=== PATIENT | female | born 1980 | race Caucasian/White ===

== ENCOUNTER 2017-04-12 18:51 | Emergency (ER) | payer MEDICARE, MEDICAID ==
[~2017-04-12] VITALS: Ht 160 cm; Wt 54.5 kg
[2017-04-12] MEDS ORDERED: HYDR-3713 PO (19:13)
[2017-04-12] MEDS ORDERED: METH10TA2 PO (19:13)
[2017-04-12] MEDS ORDERED: PRIS50TA PO (19:13)
[2017-04-12] MEDS ORDERED: CALC0.009 TOP (19:13)
[2017-04-12] MEDS ORDERED: BACL1TAB9 PO (19:13)
[2017-04-12] MEDS ORDERED: TORS20TA2 PO (19:13)
[2017-04-12] MEDS ORDERED: [UNRECOGNIZED DRUG - OTHER] PO (19:13)
[2017-04-12] MEDS ORDERED: NAPR500T3 PO (19:13)
[2017-04-12] MEDS ORDERED: COLA100C5 PO (19:13)
[2017-04-12] MEDS ORDERED: IBUP-1022 PO (19:13)
[2017-04-12] MEDS ORDERED: GABA800T PO (19:13)
[2017-04-12] MEDS ORDERED: methylPREDNISolone INJ 125 MG/2 ML VIAL (J2930) IM ONE ×2 (21:15→22:00)
[2017-04-12] MEDS ORDERED: dexameTHASONE 20 MG/5 ML VIAL (J1100) IV ONE (21:45)
[2017-04-12 22:46] VITALS: BP 105/61
--- NOTE | 2017-04-13 11:30 | REP ---
Chest x-ray: Two views. History: Cough. Comparison study: March 15, 2017. Findings: Mkyfze-S-Skrm catheter is seen in place on the right with its tip in the expected location of the superior vena cava. The lungs are symmetrically aerated and clear. Heart is not enlarged. Pulmonary vasculature is not increased. Pleural angles are sharp. No significant bony abnormality is seen. Impression: No active disease. Signed by Andreas Aguilar MD 04/13/2017 09:39 A
== END 2017-04-12 22:48 | disposition home or self-care (01) ==
LOC: M ED 18:51
DX: G35 Multiple sclerosis (principal); F41.9 Anxiety disorder, unspecified; F32.9 Major depressive disorder, single episode, unspecified; Z87.891 Personal history of nicotine dependence; Z79.899 Other long term (current) drug therapy
CPT/HCPCS: 71020; 96374; 99282; J2930

== ENCOUNTER → 2017-07-08 | Outpatient (REF) | payer MEDICARE, MEDICAID ==
[2017-07-08 13:34] LABS: HEMATOCRIT 39.9 % (36.0-47.0); HEMOGLOBIN 13.4 g/dl (12.0-16.0); MEAN CORPUSCULAR HEMOGLOBIN 31.8 pg (27.0-33.0); MEAN CORPUSCULAR HGB CONC 33.6 g/dl (32.0-36.5); MEAN CORPUSCULAR VOLUME 94.8 fl (80.0-96.0); PLATELET COUNT, AUTOMATED 413 10^3/uL (150-450); RED BLOOD COUNT 4.21 10^6/uL (4.00-5.40); WHITE BLOOD COUNT 8.7 10^3/uL (4.0-10.0)
[2017-07-08 13:56] LABS: TOTAL 25(OH) VITAMIN D 37.7 NG/ML (30.0-100.0)
[2017-07-08 14:09] LABS: ALBUMIN 4.3 GM/DL (3.2-5.2); ALBUMIN/GLOBULIN RATIO 1.23 (1.00-1.93); ALKALINE PHOSPHATASE 71 U/L (45-117); ALT/SGPT 14 U/L (12-78); ANION GAP 7 MEQ/L (8-16); AST/SGOT 14 U/L (7-37); BILIRUBIN,TOTAL 0.6 MG/DL (0.2-1.0); BLOOD UREA NITROGEN 21 MG/DL (7-18); CARBON DIOXIDE LEVEL 31 MEQ/L (21-32); CHLORIDE LEVEL 100 MEQ/L (98-107); GLOMERULAR FILTRATION RATE > 60.0 (>60); GLUCOSE, FASTING 66 MG/DL (70-105); POTASSIUM SERUM 3.6 MEQ/L (3.5-5.1); SODIUM LEVEL 138 MEQ/L (136-145); TOTAL PROTEIN 7.8 GM/DL (6.4-8.2)
== END ==
LOC: SKLABADC 10:22
DX: G35 Multiple sclerosis (principal); M62.81 Muscle weakness (generalized); H53.8 Other visual disturbances
CPT/HCPCS: 84443

== ENCOUNTER 2017-07-16 10:36 | Inpatient (IN) | payer MEDICARE, MEDICAID ==
[2017-07-16 11:35] LABS: ABG BASE EXCESS -1.3 (-2.0-2.0); ABG HCO3 22.2 MEQ/L (22.0-26.0); ABG PARTIAL PRESSURE CO2 33.7 mmHg (35.0-45.0); ABG PARTIAL PRESSURE O2 84.1 mmHg (75.0-100.0); ABG STANDARD HCO3 23.3 MEQ/L (22.0-26.0); ABG TOTAL CO2 23.3 MEQ/L (22.0-29.0); ABG pH (ARTERIAL) 7.437 UNITS (7.350-7.450)
[2017-07-16 11:47] LABS: BEDSIDE GLUCOSE 111 MG/DL (70-105)
[2017-07-16] MEDS: NS 1,000 ML IV (11:47)
[2017-07-16 11:57] LABS: BASO % 0.2 % (0.0-1.0); EOS # 0.3 10^3/uL (0.0-0.50); EOS % 3.6 % (0.0-3.0); HEMATOCRIT 35.6 % (36.0-47.0); HEMOGLOBIN 12.2 g/dl (12.0-16.0); IMMATURE GRANULOCYTE % 0.4 % (0-0); LYMPH # 0.4 10^3/uL (1.5-4.5); MEAN CORPUSCULAR HEMOGLOBIN 32.2 pg (27.0-33.0); MEAN CORPUSCULAR HGB CONC 34.3 g/dl (32.0-36.5); MEAN CORPUSCULAR VOLUME 93.9 fl (80.0-96.0); MONO # 0.5 10^3/uL (0.0-0.8); MONO % 5.7 % (0.0-5.0); NEUTROPHILS # 7.7 10^3/uL (1.8-7.7); NEUTROPHILS % 86.1 % (36.0-66.0); PLATELET COUNT, AUTOMATED 292 10^3/uL (150-450); RED BLOOD COUNT 3.79 10^6/uL (4.00-5.40); RED CELL DISTRIBUTION WIDTH 12.9 % (11.5-14.5)
[2017-07-16 12:03] LABS: AMMONIA 20 uMOL/L (<32)
[2017-07-16 12:07] LABS: LACTIC ACID SEPSIS PROTOCOL 2.1 MMOL/L (0.4-2.0)
[2017-07-16 12:16] LABS: ALBUMIN/GLOBULIN RATIO 1.21 (1.00-1.93); ALKALINE PHOSPHATASE 88 U/L (45-117); ALT/SGPT 43 U/L (12-78); ANION GAP 8 MEQ/L (8-16); AST/SGOT 52 U/L (7-37); BILIRUBIN,DIRECT 0.2 MG/DL (0.0-0.2); BILIRUBIN,TOTAL 0.7 MG/DL (0.2-1.0); BLOOD UREA NITROGEN 13 MG/DL (7-18); CALCIUM LEVEL 8.8 MG/DL (8.5-10.1); CARBON DIOXIDE LEVEL 26 MEQ/L (21-32); CHLORIDE LEVEL 103 MEQ/L (98-107); CPK CREATINE PHOSPHOKINASE 445 U/L (26-192); CREATININE FOR GFR 0.88 MG/DL (0.55-1.02); ETHYL ALCOHOL (ETHANOL) < 0.003 % (0.000-0.010); GLOMERULAR FILTRATION RATE > 60.0 (>60); GLUCOSE, FASTING 100 MG/DL (70-105); POTASSIUM SERUM 3.4 MEQ/L (3.5-5.1); SALICYLATE LEVEL < 1.7 MG/DL (5.0-30.0); SODIUM LEVEL 137 MEQ/L (136-145); TOTAL PROTEIN 7.3 GM/DL (6.4-8.2); TROPONIN I < 0.02 NG/ML (< 0.10)
[2017-07-16 12:22] LABS: ACETAMINOPHEN LEVEL < 2.0 UG/ML (10.0-30.0); CK-MB VALUE MASS 1.1 NG/ML (0.0-3.6); MB/CK RELATIVE INDEX 0.24 (< OR =4); THYROID STIMULATING HORMONE 0.612 uIU/ML (0.358-3.740)
[2017-07-16 12:44] LABS: OSMOLALITY SERUM 283 MOSM/KG (275-295)
[2017-07-16 12:50] LABS: KETONE, URINE AUTO RFX NEGATIVE (NEGATIVE); LEUKOCYTE ESTERASE UR AUTO RFX TRACE (NEGATIVE); MUCUS, URINE RFX SMALL (NEGATIVE); NITRITE, URINE AUTO RFX NEGATIVE (NEGATIVE); RBC, URINE AUTO RFX 1 /HPF (0-3); SPECIFIC GRAVITY UR AUTO RFX 1.009 (1.002-1.035); SQUAM EPITHELIAL CELL UR AURFX 1 /HPF (0-6); WBC, URINE AUTO RFX 3 /HPF (0-3)
[2017-07-16] MEDS: CEFEPIME HCL 2 GM in APPROPRIATE DILUENT 1 EA IV (12:52)
[2017-07-16 13:09] LABS: AMPHETAMINES LEVEL URINE NEGATIVE (NEGATIVE); BARBITURATES URINE NEGATIVE (NEGATIVE); BENZODIAZEPINES URINE NEGATIVE (NEGATIVE); CANNABINOIDS URINE POSITIVE (NEGATIVE); COCAINE METABOLITE URINE NEGATIVE (NEGATIVE); METHADONE URINE POSITIVE (NEGATIVE); OPIATES URINE NEGATIVE (NEGATIVE); PHENCYCLIDINE URINE NEGATIVE (NEGATIVE)
[2017-07-16 13:44] LABS: NT-PRO BNP 49 PG/ML (<125)
[2017-07-16] MEDS: NS 500 ML IV (13:50)
[2017-07-16] MEDS: NALOXONE INJ 0.4 MG/1 ML VIAL (J2310) IV (14:22)
[2017-07-16 14:23] LABS: MAGNESIUM LEVEL 1.8 MG/DL (1.8-2.4)
[2017-07-16] MEDS: KCL 10MEQ IN 100ML SWI (KRUN) 10 MEQ in APPROPRIATE DILUENT 1 EA IV (14:57)
[2017-07-16] MEDS: METHADONE 10 MG TAB (S0109) PO ×2 (16:00→22:29)
[2017-07-16] MEDS: MULTIVITAMIN -ADULT INJECTION 10 ML, THIAMINE INJection 100 MG, FOLIC ACID 1 MG in NS 1... IV (16:21)
[2017-07-16] MEDS: GABAPENTIN 300 MG CAP PO ×2 (17:00→22:29)
[2017-07-16] MEDS: BETHANECHOL 10 MG TAB PO ×2 (17:00→22:10)
[2017-07-16] MEDS: LORazepam 2 MG/ML VIAL (J2060) IV (17:01)
[2017-07-16] MEDS: BACLOFEN 10 MG TAB PO ×2 (17:16→22:29)
[2017-07-16] MEDS ORDERED: PROHANCE 279.3MG/ML 5ML VIAL (A9576) As Ordered (18:11)
[2017-07-16] MEDS ORDERED: methylPREDNISolone INJ 125 MG/2 ML VIAL (J2930) IV (20:15)
[2017-07-16 21:14] LABS: CPK CREATINE PHOSPHOKINASE 379 U/L (26-192); TROPONIN I < 0.02 NG/ML (< 0.10)
[2017-07-16 21:15] LABS: CK-MB VALUE MASS 1.5 NG/ML (0.0-3.6); MB/CK RELATIVE INDEX 0.39 (< OR =4)
[2017-07-16] MEDS: SYMBICORT 160/4.5MCG INHALER 6GM INH (21:51)
[2017-07-16] MEDS: HEPARIN SOD (PORCINE) 5000 UNITS/ML VIAL SQ (22:05)
[2017-07-16] MEDS: CEFTRIAXONE SOD 2 GM in APPROPRIATE DILUENT 1 EA IV (22:06)
[2017-07-16] MEDS: methylPREDNISolone 1,000 MG, VIAL MATE ADAPTER 1 EACH in D5W 250 ML IV (22:06)
[2017-07-16] MEDS: clonazePAM 0.5 MG TAB PO (22:29)
[2017-07-16] MEDS: KCL 20MEQ IN D5/0.45NS 1000ML 1,000 ML IV (23:54)
[2017-07-17] MEDS: KCL 20MEQ IN D5/0.45NS 1000ML 1,000 ML IV ×4 (03:28→19:54)
[2017-07-17 07:15] LABS: HEMATOCRIT 30.1 % (36.0-47.0); HEMOGLOBIN 10.3 g/dl (12.0-16.0); MEAN CORPUSCULAR HEMOGLOBIN 32.1 pg (27.0-33.0); MEAN CORPUSCULAR HGB CONC 34.2 g/dl (32.0-36.5); MEAN CORPUSCULAR VOLUME 93.8 fl (80.0-96.0); PLATELET COUNT, AUTOMATED 284 10^3/uL (150-450); RED BLOOD COUNT 3.21 10^6/uL (4.00-5.40); RED CELL DISTRIBUTION WIDTH 12.8 % (11.5-14.5); WHITE BLOOD COUNT 5.4 10^3/uL (4.0-10.0)
[2017-07-17 07:43] LABS: ANION GAP 10 MEQ/L (8-16); BLOOD UREA NITROGEN 11 MG/DL (7-18); CALCIUM LEVEL 8.1 MG/DL (8.5-10.1); CARBON DIOXIDE LEVEL 22 MEQ/L (21-32); CHLORIDE LEVEL 108 MEQ/L (98-107); CREATININE FOR GFR 0.97 MG/DL (0.55-1.02); GLOMERULAR FILTRATION RATE > 60.0 (>60); GLUCOSE, FASTING 180 MG/DL (70-105); MAGNESIUM LEVEL 1.8 MG/DL (1.8-2.4); POTASSIUM SERUM 3.3 MEQ/L (3.5-5.1); SODIUM LEVEL 140 MEQ/L (136-145)
[2017-07-17] MEDS: SYMBICORT 160/4.5MCG INHALER 6GM INH ×2 (07:44→21:31)
[2017-07-17] MEDS: POTASSIUM CHLORIDE 10 MEQ SR TABLET PO (09:00)
[2017-07-17] MEDS: BACLOFEN 10 MG TAB PO ×4 (09:30→23:19)
[2017-07-17] MEDS: HEPARIN SOD (PORCINE) 5000 UNITS/ML VIAL SQ ×2 (09:31→23:09)
[2017-07-17] MEDS: METHADONE 10 MG TAB (S0109) PO ×3 (09:31→23:08)
[2017-07-17] MEDS: clonazePAM 0.5 MG TAB PO ×2 (09:32→23:08)
[2017-07-17] MEDS: GABAPENTIN 300 MG CAP PO ×4 (09:32→23:07)
[2017-07-17] MEDS: BETHANECHOL 10 MG TAB PO ×4 (09:40→23:09)
[2017-07-17] MEDS: DESVENLAFAXINE ER 50 MG TABLET (PRISTIQ) PO (09:41)
[2017-07-17 15:39] LABS: HCG, SERUM QUANTITATIVE < 1.0 MIU/ML
[2017-07-17] MEDS: methylPREDNISolone 1,000 MG, VIAL MATE ADAPTER 1 EACH in D5W 250 ML IV (23:08)
[2017-07-18] MEDS: CEFTRIAXONE SOD 2 GM in APPROPRIATE DILUENT 1 EA IV ×2 (00:17→22:07)
[2017-07-18 06:00] LABS: HEMATOCRIT 28.2 % (36.0-47.0); HEMOGLOBIN 9.7 g/dl (12.0-16.0); MEAN CORPUSCULAR HEMOGLOBIN 32.6 pg (27.0-33.0); MEAN CORPUSCULAR HGB CONC 34.4 g/dl (32.0-36.5); MEAN CORPUSCULAR VOLUME 94.6 fl (80.0-96.0); PLATELET COUNT, AUTOMATED 313 10^3/uL (150-450); RED BLOOD COUNT 2.98 10^6/uL (4.00-5.40); RED CELL DISTRIBUTION WIDTH 13.1 % (11.5-14.5); WHITE BLOOD COUNT 12.7 10^3/uL (4.0-10.0)
[2017-07-18 06:15] LABS: ANION GAP 9 MEQ/L (8-16); BLOOD UREA NITROGEN 10 MG/DL (7-18); CALCIUM LEVEL 8.4 MG/DL (8.5-10.1); CARBON DIOXIDE LEVEL 20 MEQ/L (21-32); CHLORIDE LEVEL 109 MEQ/L (98-107); CREATININE FOR GFR 0.81 MG/DL (0.55-1.02); GLOMERULAR FILTRATION RATE > 60.0 (>60); GLUCOSE, FASTING 156 MG/DL (70-105); MAGNESIUM LEVEL 1.8 MG/DL (1.8-2.4); POTASSIUM SERUM 4.2 MEQ/L (3.5-5.1); SODIUM LEVEL 138 MEQ/L (136-145)
[2017-07-18] MEDS: SYMBICORT 160/4.5MCG INHALER 6GM INH ×2 (08:49→20:41)
[2017-07-18] MEDS: clonazePAM 0.5 MG TAB PO ×2 (09:00→20:10)
[2017-07-18] MEDS: GABAPENTIN 300 MG CAP PO ×4 (09:00→20:10)
[2017-07-18] MEDS: BACLOFEN 10 MG TAB PO ×4 (09:00→20:10)
[2017-07-18] MEDS: MIRALAX *UNIT DOSE* 17GM PACKET PO (09:01)
[2017-07-18] MEDS: KCL 20MEQ IN D5/0.45NS 1000ML 1,000 ML IV ×2 (09:01→16:35)
[2017-07-18] MEDS: METHADONE 10 MG TAB (S0109) PO ×3 (09:01→20:11)
[2017-07-18] MEDS: DOCUSATE SODIUM 100 MG CAP PO ×3 (09:01→21:00)
[2017-07-18] MEDS: HEPARIN SOD (PORCINE) 5000 UNITS/ML VIAL SQ ×2 (09:02→20:11)
[2017-07-18] MEDS: DESVENLAFAXINE ER 50 MG TABLET (PRISTIQ) PO (09:03)
[2017-07-18] MEDS: BETHANECHOL 10 MG TAB PO ×4 (09:03→20:10)
[2017-07-18] MEDS: ONDANSETRON 4MG/2ML VIAL (J2405) IV (12:51)
[2017-07-18] MEDS: KETOROLAC 30 MG/ML VIAL (J1885) IV (12:51)
[2017-07-18] MEDS: LIDOCAINE 5% (LIDODERM) PATCH TD (16:33)
[2017-07-18] MEDS: methylPREDNISolone 1,000 MG, VIAL MATE ADAPTER 1 EACH in D5W 250 ML IV (20:10)
[2017-07-18] MEDS: **NOTE PATIENT COMMENT** MISC XX (20:11)
[2017-07-19] MEDS: KCL 20MEQ IN D5/0.45NS 1000ML 1,000 ML IV ×3 (03:19→21:23)
[2017-07-19 07:00] LABS: HEMATOCRIT 28.9 % (36.0-47.0); HEMOGLOBIN 9.4 g/dl (12.0-16.0); MEAN CORPUSCULAR HEMOGLOBIN 31.5 pg (27.0-33.0); MEAN CORPUSCULAR HGB CONC 32.5 g/dl (32.0-36.5); PLATELET COUNT, AUTOMATED 350 10^3/uL (150-450); RED BLOOD COUNT 2.98 10^6/uL (4.00-5.40); RED CELL DISTRIBUTION WIDTH 13.2 % (11.5-14.5); WHITE BLOOD COUNT 14.6 10^3/uL (4.0-10.0)
[2017-07-19 07:16] LABS: ANION GAP 7 MEQ/L (8-16); BLOOD UREA NITROGEN 7 MG/DL (7-18); CALCIUM LEVEL 8.4 MG/DL (8.5-10.1); CARBON DIOXIDE LEVEL 25 MEQ/L (21-32); CHLORIDE LEVEL 111 MEQ/L (98-107); CREATININE FOR GFR 0.68 MG/DL (0.55-1.02); GLOMERULAR FILTRATION RATE > 60.0 (>60); GLUCOSE, FASTING 142 MG/DL (70-105); MAGNESIUM LEVEL 2.1 MG/DL (1.8-2.4); POTASSIUM SERUM 4.2 MEQ/L (3.5-5.1); SODIUM LEVEL 143 MEQ/L (136-145)
[2017-07-19] MEDS: BETHANECHOL 10 MG TAB PO ×4 (07:54→21:24)
[2017-07-19] MEDS: HEPARIN SOD (PORCINE) 5000 UNITS/ML VIAL SQ ×2 (07:55→21:23)
[2017-07-19] MEDS: METHADONE 10 MG TAB (S0109) PO ×3 (07:55→20:20)
[2017-07-19] MEDS: LIDOCAINE 5% (LIDODERM) PATCH TD (07:56)
[2017-07-19] MEDS: clonazePAM 0.5 MG TAB PO ×2 (07:56→21:24)
[2017-07-19] MEDS: DOCUSATE SODIUM 100 MG CAP PO ×2 (07:56→21:24)
[2017-07-19] MEDS: BACLOFEN 10 MG TAB PO ×4 (07:56→21:24)
[2017-07-19] MEDS: GABAPENTIN 300 MG CAP PO ×4 (07:57→21:24)
[2017-07-19] MEDS: DESVENLAFAXINE ER 50 MG TABLET (PRISTIQ) PO (07:57)
[2017-07-19] MEDS: MIRALAX *UNIT DOSE* 17GM PACKET PO (08:01)
[2017-07-19] MEDS: SYMBICORT 160/4.5MCG INHALER 6GM INH ×2 (09:43→23:36)
[2017-07-19] MEDS: KETOROLAC 30 MG/ML VIAL (J1885) IV (13:24)
[2017-07-19] MEDS: methylPREDNISolone 1,000 MG, VIAL MATE ADAPTER 1 EACH in D5W 250 ML IV (20:11)
[2017-07-19] MEDS: **NOTE PATIENT COMMENT** MISC XX (21:00)
[2017-07-19] MEDS: CEFTRIAXONE SOD 2 GM in APPROPRIATE DILUENT 1 EA IV (21:23)
[2017-07-20 05:08] LABS: HEMATOCRIT 31.7 % (36.0-47.0); HEMOGLOBIN 10.5 g/dl (12.0-16.0); MEAN CORPUSCULAR HEMOGLOBIN 31.8 pg (27.0-33.0); MEAN CORPUSCULAR HGB CONC 33.1 g/dl (32.0-36.5); MEAN CORPUSCULAR VOLUME 96.1 fl (80.0-96.0); PLATELET COUNT, AUTOMATED 385 10^3/uL (150-450); RED CELL DISTRIBUTION WIDTH 12.9 % (11.5-14.5); WHITE BLOOD COUNT 12.4 10^3/uL (4.0-10.0)
[2017-07-20 05:25] LABS: ANION GAP 8 MEQ/L (8-16); BLOOD UREA NITROGEN 10 MG/DL (7-18); CALCIUM LEVEL 8.5 MG/DL (8.5-10.1); CARBON DIOXIDE LEVEL 25 MEQ/L (21-32); CHLORIDE LEVEL 109 MEQ/L (98-107); CREATININE FOR GFR 0.74 MG/DL (0.55-1.02); GLOMERULAR FILTRATION RATE > 60.0 (>60); GLUCOSE, FASTING 126 MG/DL (70-105); MAGNESIUM LEVEL 2.1 MG/DL (1.8-2.4); SODIUM LEVEL 142 MEQ/L (136-145)
[2017-07-20] MEDS: BETHANECHOL 10 MG TAB PO ×4 (08:43→20:30)
[2017-07-20] MEDS: KCL 20MEQ IN D5/0.45NS 1000ML 1,000 ML IV ×2 (08:43→20:29)
[2017-07-20] MEDS: clonazePAM 0.5 MG TAB PO ×2 (08:43→20:30)
[2017-07-20] MEDS: DOCUSATE SODIUM 100 MG CAP PO ×2 (08:43→20:34)
[2017-07-20] MEDS: GABAPENTIN 300 MG CAP PO ×4 (08:43→20:30)
[2017-07-20] MEDS: BACLOFEN 10 MG TAB PO ×4 (08:43→20:30)
[2017-07-20] MEDS: DESVENLAFAXINE ER 50 MG TABLET (PRISTIQ) PO (08:44)
[2017-07-20] MEDS: METHADONE 10 MG TAB (S0109) PO ×3 (08:45→20:30)
[2017-07-20] MEDS: HEPARIN SOD (PORCINE) 5000 UNITS/ML VIAL SQ ×2 (08:46→20:29)
[2017-07-20] MEDS: MIRALAX *UNIT DOSE* 17GM PACKET PO (08:50)
[2017-07-20] MEDS: SYMBICORT 160/4.5MCG INHALER 6GM INH ×2 (09:00→21:05)
[2017-07-20] MEDS: LIDOCAINE 5% (LIDODERM) PATCH TD (14:54)
[2017-07-20] MEDS: CALCIPOTRIENE CREAM 0.005% 60GM TOP (18:54)
[2017-07-20] MEDS: methylPREDNISolone 1,000 MG, VIAL MATE ADAPTER 1 EACH in D5W 250 ML IV (20:29)
[2017-07-20] MEDS: **NOTE PATIENT COMMENT** MISC XX (20:33)
[2017-07-20] MEDS: CEFTRIAXONE SOD 2 GM in APPROPRIATE DILUENT 1 EA IV (20:33)
[2017-07-21] MEDS: KCL 20MEQ IN D5/0.45NS 1000ML 1,000 ML IV ×2 (05:48→12:30)
[2017-07-21] MEDS: SYMBICORT 160/4.5MCG INHALER 6GM INH ×2 (08:31→21:51)
[2017-07-21 08:50] LABS: HEMATOCRIT 32.1 % (36.0-47.0); HEMOGLOBIN 10.7 g/dl (12.0-16.0); MEAN CORPUSCULAR HEMOGLOBIN 31.9 pg (27.0-33.0); MEAN CORPUSCULAR HGB CONC 33.3 g/dl (32.0-36.5); MEAN CORPUSCULAR VOLUME 95.8 fl (80.0-96.0); PLATELET COUNT, AUTOMATED 452 10^3/uL (150-450); RED BLOOD COUNT 3.35 10^6/uL (4.00-5.40); RED CELL DISTRIBUTION WIDTH 13.2 % (11.5-14.5); WHITE BLOOD COUNT 15.3 10^3/uL (4.0-10.0)
[2017-07-21] MEDS: HEPARIN SOD (PORCINE) 5000 UNITS/ML VIAL SQ ×2 (08:55→20:39)
[2017-07-21] MEDS: MIRALAX *UNIT DOSE* 17GM PACKET PO (08:55)
[2017-07-21] MEDS: DESVENLAFAXINE ER 50 MG TABLET (PRISTIQ) PO (08:59)
[2017-07-21] MEDS: METHADONE 10 MG TAB (S0109) PO ×3 (08:59→20:41)
[2017-07-21] MEDS: BACLOFEN 10 MG TAB PO ×4 (08:59→20:39)
[2017-07-21] MEDS: DOCUSATE SODIUM 100 MG CAP PO ×2 (09:00→20:39)
[2017-07-21] MEDS: predniSONE 20 MG TAB PO (09:00)
[2017-07-21] MEDS: GABAPENTIN 300 MG CAP PO ×4 (09:00→20:39)
[2017-07-21] MEDS: clonazePAM 0.5 MG TAB PO ×2 (09:00→20:39)
[2017-07-21] MEDS: LIDOCAINE 5% (LIDODERM) PATCH TD (09:01)
[2017-07-21] MEDS: BETHANECHOL 10 MG TAB PO ×4 (09:05→20:39)
[2017-07-21 09:07] LABS: MAGNESIUM LEVEL 2.2 MG/DL (1.8-2.4)
[2017-07-21 09:11] LABS: ANION GAP 9 MEQ/L (8-16); BLOOD UREA NITROGEN 11 MG/DL (7-18); CALCIUM LEVEL 8.6 MG/DL (8.5-10.1); CARBON DIOXIDE LEVEL 24 MEQ/L (21-32); CHLORIDE LEVEL 105 MEQ/L (98-107); CREATININE FOR GFR 0.72 MG/DL (0.55-1.02); GLOMERULAR FILTRATION RATE > 60.0 (>60); GLUCOSE, FASTING 114 MG/DL (70-105); POTASSIUM SERUM 4.1 MEQ/L (3.5-5.1); SODIUM LEVEL 138 MEQ/L (136-145)
[2017-07-21] MEDS: CEFDINIR 300 MG CAP (OMNICEF) PO (20:39)
[2017-07-21] MEDS: **NOTE PATIENT COMMENT** MISC XX (20:39)
[2017-07-21] MEDS: MOM 30ML SUSPENSION UDC PO (22:17)
[2017-07-22] MEDS: FLEET ENEMA PR (02:44)
[2017-07-22 05:56] LABS: HEMATOCRIT 30.4 % (36.0-47.0); HEMOGLOBIN 10.1 g/dl (12.0-16.0); MEAN CORPUSCULAR HEMOGLOBIN 31.7 pg (27.0-33.0); MEAN CORPUSCULAR HGB CONC 33.2 g/dl (32.0-36.5); MEAN CORPUSCULAR VOLUME 95.3 fl (80.0-96.0); PLATELET COUNT, AUTOMATED 463 10^3/uL (150-450); RED BLOOD COUNT 3.19 10^6/uL (4.00-5.40); RED CELL DISTRIBUTION WIDTH 13.2 % (11.5-14.5); WHITE BLOOD COUNT 20.3 10^3/uL (4.0-10.0)
[2017-07-22 06:11] LABS: ANION GAP 8 MEQ/L (8-16); BLOOD UREA NITROGEN 18 MG/DL (7-18); CALCIUM LEVEL 8.4 MG/DL (8.5-10.1); CARBON DIOXIDE LEVEL 26 MEQ/L (21-32); CHLORIDE LEVEL 105 MEQ/L (98-107); CREATININE FOR GFR 0.65 MG/DL (0.55-1.02); GLOMERULAR FILTRATION RATE > 60.0 (>60); GLUCOSE, FASTING 84 MG/DL (70-100); MAGNESIUM LEVEL 2.5 MG/DL (1.8-2.4); POTASSIUM SERUM 4.1 MEQ/L (3.5-5.1); SODIUM LEVEL 139 MEQ/L (136-145)
[2017-07-22] MEDS: GABAPENTIN 300 MG CAP PO ×4 (08:33→20:33)
[2017-07-22] MEDS: BETHANECHOL 10 MG TAB PO ×4 (08:33→20:33)
[2017-07-22] MEDS: METHADONE 10 MG TAB (S0109) PO ×3 (08:33→20:33)
[2017-07-22] MEDS: MIRALAX *UNIT DOSE* 17GM PACKET PO ×2 (08:34→20:34)
[2017-07-22] MEDS: clonazePAM 0.5 MG TAB PO ×2 (08:34→20:33)
[2017-07-22] MEDS: DOCUSATE SODIUM 100 MG CAP PO ×2 (08:34→20:33)
[2017-07-22] MEDS: HEPARIN SOD (PORCINE) 5000 UNITS/ML VIAL SQ ×2 (08:34→20:34)
[2017-07-22] MEDS: BACLOFEN 10 MG TAB PO ×4 (08:34→20:33)
[2017-07-22] MEDS: predniSONE 20 MG TAB PO (08:34)
[2017-07-22] MEDS: DESVENLAFAXINE ER 50 MG TABLET (PRISTIQ) PO (08:34)
[2017-07-22] MEDS: LIDOCAINE 5% (LIDODERM) PATCH TD (08:34)
[2017-07-22] MEDS: CEFDINIR 300 MG CAP (OMNICEF) PO ×2 (08:35→20:33)
[2017-07-22] MEDS: SYMBICORT 160/4.5MCG INHALER 6GM INH ×2 (09:00→22:49)
[2017-07-22] MEDS: **NOTE PATIENT COMMENT** MISC XX (20:35)
[2017-07-23 06:24] LABS: HEMOGLOBIN 10.2 g/dl (12.0-16.0); MEAN CORPUSCULAR HEMOGLOBIN 31.9 pg (27.0-33.0); MEAN CORPUSCULAR HGB CONC 32.9 g/dl (32.0-36.5); MEAN CORPUSCULAR VOLUME 96.9 fl (80.0-96.0); PLATELET COUNT, AUTOMATED 467 10^3/uL (150-450); RED CELL DISTRIBUTION WIDTH 13.4 % (11.5-14.5); WHITE BLOOD COUNT 19.7 10^3/uL (4.0-10.0)
[2017-07-23 06:41] LABS: ANION GAP 8 MEQ/L (8-16); BLOOD UREA NITROGEN 19 MG/DL (7-18); CALCIUM LEVEL 8.1 MG/DL (8.5-10.1); CARBON DIOXIDE LEVEL 26 MEQ/L (21-32); CHLORIDE LEVEL 106 MEQ/L (98-107); CREATININE FOR GFR 0.71 MG/DL (0.55-1.02); GLOMERULAR FILTRATION RATE > 60.0 (>60); GLUCOSE, FASTING 79 MG/DL (70-100); MAGNESIUM LEVEL 2.3 MG/DL (1.8-2.4); POTASSIUM SERUM 4.1 MEQ/L (3.5-5.1); SODIUM LEVEL 140 MEQ/L (136-145)
[2017-07-23] MEDS: SYMBICORT 160/4.5MCG INHALER 6GM INH (08:46)
[2017-07-23] MEDS: MIRALAX *UNIT DOSE* 17GM PACKET PO (09:00)
[2017-07-23] MEDS: HEPARIN SOD (PORCINE) 5000 UNITS/ML VIAL SQ (09:49)
[2017-07-23] MEDS: LIDOCAINE 5% (LIDODERM) PATCH TD (09:49)
[2017-07-23] MEDS: CEFDINIR 300 MG CAP (OMNICEF) PO (09:49)
[2017-07-23] MEDS: clonazePAM 0.5 MG TAB PO (09:49)
[2017-07-23] MEDS: DOCUSATE SODIUM 100 MG CAP PO (09:49)
[2017-07-23] MEDS: predniSONE 20 MG TAB PO (09:50)
[2017-07-23] MEDS: DESVENLAFAXINE ER 50 MG TABLET (PRISTIQ) PO (09:52)
[2017-07-23] MEDS: BETHANECHOL 10 MG TAB PO ×2 (09:52→13:33)
[2017-07-23] MEDS: GABAPENTIN 300 MG CAP PO ×2 (09:52→13:33)
[2017-07-23] MEDS: BACLOFEN 10 MG TAB PO ×2 (09:52→13:34)
[2017-07-23] MEDS: METHADONE 10 MG TAB (S0109) PO (09:52)
== END 2017-07-23 15:47 | disposition home health service (06) | DRG 70 ==
LOC: M MSPAV 07-21 15:10 → M PCU 07-17 23:53 → M ED 10:36 → M PCU 07-18 20:52 → M ED INP 14:10
DX: G93.41 Metabolic encephalopathy (principal); J18.9 Pneumonia, unspecified organism; G35 Multiple sclerosis; K59.00 Constipation, unspecified; D64.9 Anemia, unspecified; E87.6 Hypokalemia; F41.9 Anxiety disorder, unspecified; G89.29 Other chronic pain; M50.221 Other cervical disc displacement at C4-C5 level; M50.222 Other cervical disc displacement at C5-C6 level; Z79.899 Other long term (current) drug therapy; Z91.19 Patient's noncompliance with other medical treatment and regimen; F31.81 Bipolar II disorder